=== PATIENT | male | born 1995 | race Native Hawaiian/Other Pacific Islander ===

== ENCOUNTER 2016-12-04 16:04 | Emergency (ER) | payer BC ==
[~2016-12-04] VITALS: Ht 180.3 cm; Wt 59.0 kg
== END 2016-12-04 19:18 | disposition home or self-care (01) ==
LOC: ED 16:04
DX: S80.02XA Contusion of left knee, initial encounter (principal); W20.8XXA Other cause of strike by thrown, projected or falling object, initial encounter; Y92.69 Other specified industrial and construction area as the place of occurrence of the external cause
CPT/HCPCS: 99282

== ENCOUNTER 2020-07-23 16:58 | Outpatient (CLI) | payer BC | END 2020-07-23 22:39 | disposition home or self-care (01) | LOC: RAD 16:58 | DX: M54.5 Low back pain (principal) ==